=== PATIENT | female | born 1965 | race African-American/Black ===

== ENCOUNTER 2017-10-14 08:22 | Outpatient (CLI) | payer BC ==
--- NOTE | 2017-10-14 12:06 | MRI ---
MRI OF THE RIGHT KNEE WITHOUT CONTRAST: Date: 10/14/17 INDICATION: Right knee pain on and off for 1 year. TECHNIQUE: Routine noncontrast MR images were obtained of the right knee. FINDINGS: There is a small semimembranosus-medial gastrocnemius popliteal cyst. There is mild osteoarthrosis in volving the right knee, predominantly in the medial femorotibial and patellofemoral compartment. Ther e is essential free edge radial tear involving the posterior horn of the medial meniscus on image 19 of series 5 with partial medial extrusion. The lateral meniscus appears intact. The ACL, PCL, MCL, an d LCLC are intact. IMPRESSION: 1. Mild osteoarthrosis of the right knee. 2. Medial meniscal tear. POS: OFF
== END 2017-10-14 08:23 | disposition home or self-care (01) ==
LOC: SCSMRI 08:22
PROVIDERS: ATTEND Orthopaedic Surgery
DX: M25.561 Pain in right knee (principal); M17.11 Unilateral primary osteoarthritis, right knee; S83.241A Other tear of medial meniscus, current injury, right knee, initial encounter